=== PATIENT | female | born 1990 | race Caucasian/White ===

== ENCOUNTER 2021-05-28 05:19 | Inpatient (IN) | payer MEDICAID ==
[~2021-05-28] VITALS: Ht 157.5 cm; Wt 83.2 kg
[2021-05-28] VITALS (17 sets, daily range): BP systolic 95–115; BP diastolic 59–79; PULSE 62–100; TEMP 98–98.8
[2021-05-28 06:30] LABS: BASO % 0.2 % (0.0-2.0); EOS # 0.1 (0.0-0.7); EOS % 0.6 % (0-4.0); GRAN # 8.9 (1.4-6.5); GRAN % 73.7 % (42.2-75.2); HEMOGLOBIN 12.6 g/dl (12.5-16.0); LYMPH # 1.8 (1.2-3.4); LYMPH % 14.7 % (20.0-51.0); MEAN CELL VOLUME 91 fl (80.0-100.0); MEAN CORPUSCULAR HEMOGLOBIN 33 pg (27.0-31.0); MEAN CORPUSCULAR HGB CONC 36 g/dl (33.0-37.0); MONO # 1.2 (0.1-0.6); MONO % 9.7 % (1.7-9.3); PLATELET COUNT 275 K/mm3 (130-400); REDCELL DISTRIBUTION WIDTH-CV 12.1 % (11.5-14.5)
[2021-05-28 06:31] LABS: HEMATOCRIT 34.6 % (37.0-47.0)
[2021-05-28] MEDS ORDERED: PRENATAL TABLET PO (07:04)
[2021-05-29 02:00] VITALS: BP 118/60; PULSE 62; TEMP 98.2
[2021-05-29 08:05] VITALS: BP 111/77; PULSE 72; TEMP 98.2
[2021-05-29] MEDS ORDERED: PERCOCET 325 MG1 TA2 PO (08:19)
[2021-05-29] MEDS ORDERED: IBU600 MG PO (08:19)
--- NOTE | 2021-05-29 10:06 | NUR ---
Initial visit attempt; Nurse with patient, User Experience Manager left card of congratulations and God's blessings for the of her son and information regarding the availability of spiritual care at our hospital.
--- NOTE | 2021-05-29 13:28 | NUR ---
THIS RN TOOK OVER CARE OF PT. AND AT 1244 FROM ROGER STRAUSS. RN WENT INTO PT. ROOM TO INTRODUCE AND PT. STATES SHE HAS NO COMPLAINTS/QUESTIONS AT THIS TIME.
[2021-05-29 16:16] VITALS: BP 106/69; PULSE 76; TEMP 98.3
[2021-05-29 19:45] VITALS: BP 114/75; PULSE 76; TEMP 98.3
[2021-05-30 06:36] VITALS: BP 101/66; PULSE 66; TEMP 98.2
== END 2021-05-30 10:45 | disposition home or self-care (01) | DRG 788 ==
LOC: OB 05:19
PROVIDERS: ADMIT Obstetrics & Gynecology
PROC: 10D00Z1 Extraction of Products of Conception, Low, Open Approach (ICD-10-PCS; principal; 2021-05-28)
DX: O34.211 Maternal care for low transverse scar from previous cesarean delivery (principal); Z3A.39 39 weeks gestation of pregnancy; Z37.0 Single live birth
CPT/HCPCS: J0690; J1885; J2175; J2370; J2405; J2590; J2791; J7120